=== PATIENT | male | born 1955 | race Caucasian/White ===

== ENCOUNTER 2017-04-15 06:38 | Day surgery (SDC) | payer MEDICARE, OTHER ==
[~2017-04-15] VITALS: Ht 190.5 cm; Wt 102.0 kg
[2017-04-15 07:57] VITALS: Ht 190.5 cm; Wt 102.0 kg
[2017-04-15] MEDS ORDERED: GARL1CAP PO (08:11)
[2017-04-15] MEDS ORDERED: ASPI81TA3 PO (08:11)
[2017-04-15] MEDS ORDERED: CALCIUM (08:11)
[2017-04-15] MEDS ORDERED: VIT.C (08:11)
[2017-04-15] MEDS ORDERED: ZINC (08:11)
[2017-04-15] MEDS ORDERED: FISH OIL (08:11)
[2017-04-15] MEDS ORDERED: MAGN250T24 PO (08:11)
[2017-04-15] MEDS ORDERED: PROPOFOL 40 ML ONE (09:03)
[2017-04-15 09:06] VITALS: BP 180/84; PULSE 66; RESP 24
--- NOTE | 2017-04-15 10:43 | GILP ---
DATE OF PROCEDURE: NAME OF PROCEDURE: Colonoscopy. SURGEON: Hao Zuniga MD PREOPERATIVE DIAGNOSIS: Screening colonoscopy. POSTOPERATIVE DIAGNOSES: 1. Colonoscopy all the way to the cecum. 2. Diverticulosis of the colon. 3. Internal hemorrhoids. 4. No colon neoplasm was identified. INDICATION FOR THE PROCEDURE: Mr. Homero Mercedes is a 61-year-old male patient who was scheduled for s creening colonoscopy. The procedure and possible complications are well explained to the patient. The patient understood and consented to the procedure. DESCRIPTION OF PROCEDURE: Under the influence of anesthesia, the colonoscope was carefully introduc ed in the rectum and under direct vision, it was advanced all the way to the cecum. FINDINGS: The patient had diverticulosis of the colon. He also had internal hemorrhoids. No colon neoplasm was identified. He tolerated the procedure very well and there was no complication from the procedures. At the end of the procedure, he was awake with stable vital signs and he was discharged home to the care of his family. IMPRESSION: 1. Colonoscopy all the way to the cecum. 2. Diverticulosis of the colon. 3. Internal hemorrhoids. 4. No colon neoplasm was identified. PLAN: 1. High fiber diet. 2. Next screening colonoscopy in 10 years. Dictated By: HAO CRUZ/MEAGAN Conf#: [id number] DID#: [id number] CC: HAO UZNIGA MD;*EndCC*
== END 2017-04-15 18:00 | disposition home or self-care (01) ==
LOC: GIL 06:38
PROVIDERS: ATTEND Internal Medicine Gastroenterology
DX: Z12.11 Encounter for screening for malignant neoplasm of colon (principal); K57.90 Diverticulosis of intestine, part unspecified, without perforation or abscess without bleeding; K64.8 Other hemorrhoids; I10 Essential (primary) hypertension; E66.9 Obesity, unspecified; Z68.28 Body mass index [BMI] 28.0-28.9, adult